=== PATIENT | male | born 1980 ===

== ENCOUNTER 2018-04-17 09:19 | Emergency (ER) | payer SELFPAY ==
[2018-04-17] MEDS ORDERED: NORCO PO ONE (09:44)
[2018-04-17] MEDS ORDERED: BICILLIN L-A IM ONE (09:44)
[2018-04-17] MEDS ORDERED: DECADRON IM ONE (09:44)
--- NOTE | 2018-04-17 10:00 | Emergency Department Report ---
ED ENT HPI - General Chief complaint: Sore Throat Stated complaint: SORE THROAT/CANT SWALLOW Time Seen by Provider: 04/17/18 09:41 Source: patient Mode of arrival: Ambulatory Limitations: No Limitations - History of Present Illness Initial comments: Patient is a 37-year-old [place] male who's had 2 days of sore throat. Patient has pain with swallowing. Patient states that when he swallows sometimes it causes him to cough. He's had subjective fevers chills at home but has not measured an elevated temperature. The patient denies nausea vomiting or diarrhea at this time. pain is 8/10 when swollowing . - Related Data Previous Rx's Medication Instructions Recorded Last Taken Type HYDROcodone/APAP 5-325 [[place] 1 each PO Q4HR PRN #12 tablet 04/17/18 Unknown Rx 5/325] predniSONE [Deltasone] 20 mg PO QDAY #5 tab 04/17/18 Unknown Rx Allergies Allergy/AdvReac Type Severity Reaction Status Date / Time No Known Allergies Allergy Unverified 08/03/15 09:20 ED Dental HPI - General Chief complaint: Sore Throat Stated complaint: SORE THROAT/CANT SWALLOW Time Seen by Provider: 04/17/18 09:41 Source: patient Mode of arrival: Ambulatory Limitations: No Limitations - Related Data Previous Rx's Medication Instructions Recorded Last Taken Type HYDROcodone/APAP 5-325 [[place] 1 each PO Q4HR PRN #12 tablet 04/17/18 Unknown Rx 5/325] predniSONE [Deltasone] 20 mg PO QDAY #5 tab 04/17/18 Unknown Rx Allergies Allergy/AdvReac Type Severity Reaction Status Date / Time No Known Allergies Allergy Unverified 08/03/15 09:20 ED Review of Systems ROS: Stated complaint: SORE THROAT/CANT SWALLOW Other details as noted in HPI Comment: All other systems reviewed and negative ED Past Medical Hx - Past Medical History Hx Headaches / Migraines: Yes Hx Asthma: Yes - Social History Smoking Status: Current Every Day Smoker Substance Use Type: None - Medications Home Medications: Home Medications Medication Instructions Recorded Confirmed Last Taken Type HYDROcodone/APAP 5-325 [[place] 1 each PO Q4HR PRN #12 tablet 04/17/18 Unknown Rx 5/325] predniSONE [Deltasone] 20 mg PO QDAY #5 tab 04/17/18 Unknown Rx ED Physical Exam - General Limitations: No Limitations General appearance: alert, in no apparent distress - Head Head exam: Present: atraumatic, normocephalic - Eye Eye exam: Present: normal appearance - ENT ENT exam: Present: mucous membranes moist. Absent: normal orophraynx (pharyngeal erythema with midline uvula) - Neck Neck exam: Present: normal inspection, lymphadenopathy (anterior cervical ) - Respiratory Respiratory exam: Present: normal lung sounds bilaterally. Absent: respiratory distress, wheezes, rales, rhonchi - Cardiovascular Cardiovascular Exam: Present: regular rate, normal rhythm. Absent: systolic murmur, diastolic murmur, rubs, gallop - GI/Abdominal GI/Abdominal exam: Present: soft, normal bowel sounds. Absent: distended, tenderness, guarding, rebound - Rectal Rectal exam: Present: deferred - Extremities Exam Extremities exam: Present: normal inspection - Back Exam Back exam: Present: normal inspection - Neurological Exam Neurological exam: Present: alert, oriented X3 - Psychiatric Psychiatric exam: Present: normal affect, normal mood - Skin Skin exam: Present: warm, dry, intact, normal color. Absent: rash ED Medical Decision Making - Medical Decision Making Patient to be empirically treated for strep pharyngitis be discharged home. Critical care attestation.: If time is entered above; I have spent that time in minutes in the direct care of this critically ill patient, excluding procedure time. ED Disposition Clinical Impression: Pharyngitis Qualifiers: Pharyngitis/tonsillitis etiology: unspecified etiology Qualified Code(s): J02.9 - Acute pharyngitis, unspecified Disposition: TO HOME OR SELFCARE Is pt being admited?: No Does the pt Need Aspirin: No Condition: Stable Instructions: Pharyngitis (ED) Time of Disposition: 10:02
== END 2018-04-17 10:47 | disposition home or self-care (01) ==
LOC: ED 09:19
DX: J02.9 Acute pharyngitis, unspecified (principal); J45.909 Unspecified asthma, uncomplicated; G43.909 Migraine, unspecified, not intractable, without status migrainosus; F17.200 Nicotine dependence, unspecified, uncomplicated
CPT/HCPCS: 96372; 99282; J0561; J1100

== ENCOUNTER 2019-01-08 20:00 | Emergency (ER) | payer SELFPAY ==
[2019-01-08 20:14] VITALS: BP 135/89
--- NOTE | 2019-01-08 20:21 | Emergency Department Report ---
Blank Doc - Documentation Documentation: 38-year-old male that presents with lac to finger. Exam: deep lac with possible bone involvement This initial assessment/diagnostic orders/clinical plan/treatment(s) is/are subject to change based on patient's health status, clinical progression and re- assessment by fellow clinical providers in the ED. Further treatment and workup at subsequent clinical providers discretion. Patient/guardians urged not to elope from the ED as their condition may be serious if not clinically assessed and managed. Initial orders include: 1- Patient sent to [facility] for further evaluation and treatment 2- xrays
--- NOTE | 2019-01-08 20:48 | XRay Report ---
XR finger(s) 2+V RT INDICATION / CLINICAL INFORMATION: Right ring finger laceration. COMPARISON: None available. FINDINGS: BONES/JOINT(S): No acute fracture or subluxation. No significant degenerative changes. SOFT TISSUES: No significant abnormality. No radiopaque foreign bodies or soft tissue gas. ADDITIONAL FINDINGS: None. Signer Name: Alan Corona MD Signed: 01/08/2019 8:44 PM Workstation Name: [id number]
[2019-01-08] MEDS ORDERED: LIDOCAINE-MPF (1%) 10 MG/1 ML VIAL 5 ML INFILTRATI ONE (22:21)
[2019-01-08] MEDS ORDERED: ONDANSETRON 4 MG ODT TAB PO ONE (22:21)
[2019-01-08] MEDS ORDERED: IBUPROFEN 600 MG TAB PO ONE (22:21)
[2019-01-08] MEDS ORDERED: HYDROcodone/ACETAMINOPHEN 7.5-325MG TAB PO ONE (22:21)
[2019-01-08] MEDS ORDERED: NEOMY 3.5 MG/BACIT 400 UNITS/POLY B 5000 UNITS/GM OINT PACKET TP ONE (22:21)
--- NOTE | 2019-01-09 00:48 | Emergency Department Report ---
Upper Extremity - HPI Chief Complaint: Wound/Laceration Stated Complaint: RT HAND FINGER LAC Time Seen by Provider: 01/08/19 20:19 Upper Extremity: Right Ring Finger (right ring finger laceration) Occurred When: Today (1 hour ago) Mechanism: Hit with Object, Crush (toilet cover hit the right ring finger) Symptoms: Yes Pain with Movement, Yes Laceration or Abrasion (right ring finger laceration), No Deformity, No Limited Range of Movement, No Numbness, No Weakness, No Swelling, No Bruising/Ecchymosis Other History: Patient is a 38-year-old -[place] male with no past medical history who presents to the ED with complaint of acute onset persistent painful bleeding laceration of right ring finger after a toilet porcelain cover sala[place] on his right ring finger about one hour ago. Patient states that the bleeding is not well controlled. Patient states that he is up-to-date with his tetanus vaccination. Patient denies numbness or tingling or weakness of the right hand. ED Review of Systems ROS: Stated complaint: RT HAND FINGER LAC Other details as noted in HPI Constitutional: denies: chills, fever Eyes: denies: eye pain, eye discharge, vision change ENT: denies: ear pain, throat pain Respiratory: denies: cough, shortness of breath, wheezing Cardiovascular: denies: chest pain, palpitations Endocrine: no symptoms reported Gastrointestinal: denies: abdominal pain, nausea, diarrhea Genitourinary: denies: urgency, dysuria Musculoskeletal: arthralgia (right ring finger pain due to bleeding laceration). denies: back pain, joint swelling Skin: other (bleeding laceration of right ring finger with pain). denies: rash, lesions Neurological: denies: headache, weakness, paresthesias Psychiatric: denies: anxiety, depression Hematological/Lymphatic: denies: easy bleeding, easy bruising ED Past Medical Hx - Past Medical History Hx Headaches / Migraines: Yes Hx Asthma: Yes - Social History Smoking Status: Current Every Day Smoker Substance Use Type: Alcohol - Medications Home Medications: Home Medications Medication Instructions Recorded Confirmed Last Taken Type HYDROcodone/APAP 5-325 [[place] 1 each PO Q4HR PRN #12 tablet 04/17/18 Unknown Rx 5/325] predniSONE [Deltasone] 20 mg PO QDAY #5 tab 04/17/18 Unknown Rx Acetaminophen/Codeine [Tylenol 1 tab PO Q6H PRN #12 tab 01/09/19 Unknown Rx /Codeine # 3 tab] Ibuprofen [Motrin] 800 mg PO Q8HR PRN #30 tablet 01/09/19 Unknown Rx Sulfamethoxazole/Trimethoprim 1 each PO Q12H #20 tablet 01/09/19 Unknown Rx [Bactrim DS TAB] Upper Extremity Exam - Exam General: Vital signs noted. No distress. Alert and acting appropriately. Head and Torso: No HEENT Abnormality, No Neck Tenderness, No Chest/Lungs Abnormality, No Abdominal Tenderness, No Back Tenderness Shoulder Exam: Yes Normal Range of Motion in Shoulder, No Shoulder Tenderness, No Clavicle Tenderness, No Shoulder Deformity, No AC Joint Tenderness Arm Exam: No Arm/Humerus Tenderness, No Arm Deformity Elbow: Yes Normal Range of Motion in Elbow, No Elbow Tenderness, No Elbow Deformity Forearm: No Forearm Tenderness, No Forearm Deformity, No Pain with Pronation, No Pain with Supination Wrist: Yes Normal ROM in Wrist, No Wrist Tenderness, No Wrist Deformity, No Snuffbox Tenderness, No Pain with Axial Thumb Compression Hand: Yes Hand Tenderness (right ring finger tenderness due to bleeding 9 cm laceration), Yes Digit Tenderness (right ring finger tenderness due to bleeding 9 cm laceration), Yes Normal ROM in Digit(s), No Hand Deformity, No Digit(s) Deformity, No Tendon Dysfunction CMS Exam: Yes Broken Skin (right ring finger bleeding 9 cm laceration), Yes Normal Distal Pulses, Yes Normal Capillary Refill, Yes Normal Distal Sensation Hand L/R Front: 1 - Bleeding 9 cm laceration with tenderness on the right ring finger on palmar side Hand L/R Back: 1 - Bleeding 9 cm laceration on right ring finger on palmar side ED Course Vital Signs 01/08/19 20:12 Temperature 98.6 F Pulse Rate 64 Respiratory 18 Rate Blood Pressure 135/89 [Right] O2 Sat by Pulse 100 Oximetry - Laceration /Wound Repair Right Finger Wound Location: upper extremity (right ring finger on palmar side) Wound Length (cm): 9 Wound's Depth, Shape: superficial, irregular Wound Explored: contaminated Irrigated w/ Saline (ccs): 100 Betadine Prep?: Yes Anesthesia: 1% Lidocaine Volume Anesthetic (ccs): 8 Wound Debrided: extensive Wound Repaired With: sutures Suture Size/Type: 3:0, proline Number of Sutures: 23 Layer Closure?: No Sterile Dressing Applied?: Yes Progress: Patient tolerated the procedure well. Patient will discharged home after the wound was cleaned and dressed appropriately. Patient was advised to follow-up with his primary care physician in 7-10 days for reevaluation. Patient was also advised to return to the ED immediately if symptoms get worse. Patient also advised to return to the ED or to his primary care physician in 12-14 days for suture removal. ED Medical Decision Making - Radiology Data Radiology results: report reviewed, image reviewed Right hand x-ray shows no acute fractures or subluxations or compressions of any foreign bodies in the tissues. - Medical Decision Making This is a 38-year-old male who presented to the ED with painful bleeding right ring finger laceration for 1 hour. In the ED, patient is alert and oriented 3 and is not in distress but appears to be in significant pain. Patient was treated for pain. Patient is up-to-date with his tetanus vaccinations. Right hand x-ray shows no acute fractures or subluxations or foreign bodies in the tissues of the right hand. The right ring finger laceration was cleaned thoroughly and sutured per protocol. Patient tolerated the procedure well and after the procedure the wound was dressed appropriately and patient discharged home on pain medication and prophylactic antibiotics. Patient was advised to return to the ED immediately if symptoms get worse. Patient was otherwise advised to follow-up with his primary care physician in 7-10 days for reevaluati on. Patient was also advised to return to the ED or to his primary care physician in 12-14 days for suture removal. - Differential Diagnosis hand contusion; finger fracture; lacerations Critical care attestation.: If time is entered above; I have spent that time in minutes in the direct care of this critically ill patient, excluding procedure time. ED Disposition Clinical Impression: Contusion of right hand including fingers Qualifiers: Encounter type: initial encounter Qualified Code(s): S60.221A - Contusion of right hand, initial encounter; S60.00XA - Contusion of unspecified finger without damage to nail, initial encounter Laceration of right ring finger w/o foreign body w/o damage to nail Qualifiers: Encounter type: initial encounter Qualified Code(s): S61.214A - Laceration without foreign body of right ring finger without damage to nail, initial encounter Disposition: TO HOME OR SELFCARE Is pt being admited?: No Does the pt Need Aspirin: No Condition: Stable Instructions: Finger Laceration (ED), Suture Care (ED) Additional Instructions: Take medications with food, drink plenty of fluids and follow-up with your primary care physician in 7-10 days for reevaluation. Return to the ED immediately if symptoms get worse. Otherwise return to the ED or to primary care physician in 12-14 days for suture removal. Prescriptions: Sulfamethoxazole/Trimethoprim [Bactrim DS TAB] 1 each PO Q12H #20 tablet Ibuprofen [Motrin] 800 mg PO Q8HR PRN #30 tablet PRN Reason: Pain , Severe (7-10) Acetaminophen/Codeine [Tylenol /Codeine # 3 tab] 1 tab PO Q6H PRN #12 tab PRN Reason: Pain , Severe (7-10) Referrals: [facility] [Outside] - 7-10 days Forms: Work/School Release Form(ED) Time of Disposition: 00:56 Print Language: MONGOLIAN
== END 2019-01-09 01:13 | disposition home or self-care (01) ==
LOC: ED 20:00
DX: S61.214A Laceration without foreign body of right ring finger without damage to nail, initial encounter (principal); S60.221A Contusion of right hand, initial encounter; S60.00XA Contusion of unspecified finger without damage to nail, initial encounter; J45.909 Unspecified asthma, uncomplicated; F17.200 Nicotine dependence, unspecified, uncomplicated; Z79.899 Other long term (current) drug therapy; X58.XXXA Exposure to other specified factors, initial encounter; Y93.89 Activity, other specified; Y92.89 Other specified places as the place of occurrence of the external cause; Y99.8 Other external cause status
CPT/HCPCS: A6250; Q0162

== ENCOUNTER 2019-02-01 18:49 | Emergency (ER) | payer SELFPAY ==
--- NOTE | 2019-02-01 19:27 | Emergency Department Report ---
ED General Adult HPI - General Chief complaint: Laceration/Recheck/Suture Stated complaint: RT RING FINGER STITCHS REMOVED Time Seen by Provider: 02/01/19 19:27 Source: patient Mode of arrival: Ambulatory Limitations: No Limitations - History of Present Illness Initial comments: 38 yo AA M pt presents for suture removal x today. Pt had laceration repaired here in ED 01/08/19. He states compliance with oral and topical antibiotics. He denies any increased pain, drainage, redness, swelling, and fever. - Related Data Previous Rx's Medication Instructions Recorded Last Taken Type HYDROcodone/APAP 5-325 [[place] 1 each PO Q4HR PRN #12 tablet 04/17/18 Unknown Rx 5/325] predniSONE [Deltasone] 20 mg PO QDAY #5 tab 04/17/18 Unknown Rx Acetaminophen/Codeine [Tylenol 1 tab PO Q6H PRN #12 tab 01/09/19 Unknown Rx /Codeine # 3 tab] Ibuprofen [Motrin] 800 mg PO Q8HR PRN #30 tablet 01/09/19 Unknown Rx Sulfamethoxazole/Trimethoprim 1 each PO Q12H #20 tablet 01/09/19 Unknown Rx [Bactrim DS TAB] Ibuprofen [Motrin 800 MG tab] 800 mg PO Q8HR PRN #21 tablet 02/01/19 Unknown Rx Allergies Allergy/AdvReac Type Severity Reaction Status Date / Time No Known Allergies Allergy Unverified 08/03/15 09:20 ED Review of Systems ROS: Stated complaint: RT RING FINGER STITCHS REMOVED Other details as noted in HPI Comment: All other systems reviewed and negative Skin: as per HPI ED Past Medical Hx - Past Medical History Hx Headaches / Migraines: Yes Hx Asthma: Yes - Surgical History Past Surgical History?: No - Social History Smoking Status: Current Every Day Smoker Substance Use Type: Alcohol - Medications Home Medications: Home Medications Medication Instructions Recorded Confirmed Last Taken Type HYDROcodone/APAP 5-325 [[place] 1 each PO Q4HR PRN #12 tablet 04/17/18 Unknown Rx 5/325] predniSONE [Deltasone] 20 mg PO QDAY #5 tab 04/17/18 Unknown Rx Acetaminophen/Codeine [Tylenol 1 tab PO Q6H PRN #12 tab 01/09/19 Unknown Rx /Codeine # 3 tab] Ibuprofen [Motrin] 800 mg PO Q8HR PRN #30 tablet 01/09/19 Unknown Rx Sulfamethoxazole/Trimethoprim 1 each PO Q12H #20 tablet 01/09/19 Unknown Rx [Bactrim DS TAB] Ibuprofen [Motrin 800 MG tab] 800 mg PO Q8HR PRN #21 tablet 02/01/19 Unknown Rx ED Physical Exam - General Limitations: No Limitations General appearance: alert, in no apparent distress - Head Head exam: Present: atraumatic, normocephalic - Respiratory Respiratory exam: Absent: respiratory distress - Cardiovascular Cardiovascular Exam: Present: regular rate - Extremities Exam Extremities exam: Present: other (healing laceration of right ring finger noted with sutures intact. No erythema or drainage noted. Minimal swelling noted.) - Neurological Exam Neurological exam: Present: alert, oriented X3 - Psychiatric Psychiatric exam: Present: normal affect, normal mood - Skin Skin exam: Present: warm, dry, intact, normal color. Absent: rash - Procedure Description Procedures done: suture removal. 23 simple interrupted sutures removed without complication. No wound dehiscence, purulent drainage, bleeding, or erythema/swelling noted ED Medical Decision Making - Radiology Data Pt here for suture removal. No signs of infection noted on exam. Sutures removed without complication. PCP f/u recommended as needed. Strict return precautions for wound were discussed in detail with pt who states understanding. Critical care attestation.: If time is entered above; I have spent that time in minutes in the direct care of this critically ill patient, excluding procedure time. ED Disposition Clinical Impression: Visit for suture removal Disposition: DC-01 TO HOME OR SELFCARE Is pt being admited?: No Condition: Stable Instructions: Suture Removal (ED) Prescriptions: Ibuprofen [Motrin 800 MG tab] 800 mg PO Q8HR PRN #21 tablet PRN Reason: pain Referrals: PRIMARY CARE, [Referring] - 3-5 Days
[2019-02-01 19:47] VITALS: BP 141/88
== END 2019-02-01 20:08 | disposition home or self-care (01) ==
LOC: ED 18:49
DX: S61.214D Laceration without foreign body of right ring finger without damage to nail, subsequent encounter (principal); G43.909 Migraine, unspecified, not intractable, without status migrainosus; J45.909 Unspecified asthma, uncomplicated; F17.200 Nicotine dependence, unspecified, uncomplicated; F10.10 Alcohol abuse, uncomplicated; Z79.899 Other long term (current) drug therapy; X58.XXXD Exposure to other specified factors, subsequent encounter

== ENCOUNTER 2020-02-05 11:59 | Emergency (ER) | payer SELFPAY ==
[2020-02-05] MEDS ORDERED: LIDOCAINE (1%) 10 MG/1 ML VIAL 20 ML MDV INFILTRATI ONE ×2 (12:05→14:55)
[2020-02-05] MEDS ORDERED: SODIUM CHLORIDE 0.9% IRR 500 ML BOTTLE IR NR (12:05)
[2020-02-05] MEDS ORDERED: NEOMY 3.5 MG/BACIT 400 UNITS/POLY B 5000 UNITS/GM OINT PACKET TP ONE (12:05)
[2020-02-05] MEDS ORDERED: IBUPROFEN 600 MG TAB PO ONE ×2 (12:05→14:55)
--- NOTE | 2020-02-05 12:05 | Event Note ---
ED Screening Note ED Screening Note: lac to hand tdap utd nv intact full rom This initial assessment/diagnostic orders/clinical plan/treatment(s) is/are subject to change based on patients health status, clinical progression and re- assessment by fellow clinical providers in the ED. Further treatment and workup at subsequent clinical providers discretion. Patient/guardian urged not to elope from the ED as their condition may be serious if not clinically assessed and managed. Initial orders include: lac repair
[2020-02-05 12:07] VITALS: BP 133/93
--- NOTE | 2020-02-05 14:27 | Emergency Department Report ---
ED Laceration HPI - HPI Chief Complaint: Wound/Laceration Stated Complaint: LT HAND INJURY Time Seen by Provider: 02/05/20 12:05 Occurred When: Today Location: Upper Extremity (L hand) Severity: moderate Tetanus Status: Up to Date Laceration Symptoms: Yes Pain, No Foreign Body Sensation, No Numbness, No Weakness Other History: L hand [employer] with saw. no numbness. tetanus utd ED Review of Systems ROS: Stated complaint: LT HAND INJURY Other details as noted in HPI Comment: All other systems reviewed and negative ED Past Medical Hx - Past Medical History Hx Headaches / Migraines: Yes Hx Asthma: Yes - Surgical History Past Surgical History?: No - Social History Smoking Status: Current Every Day Smoker Substance Use Type: Alcohol, Marijuana - Medications Home Medications: Home Medications Medication Instructions Recorded Confirmed Last Taken Type HYDROcodone/APAP 5-325 [[place] 1 each PO Q4HR PRN #12 tablet 04/17/18 Unknown Rx 5/325] predniSONE [Deltasone] 20 mg PO QDAY #5 tab 04/17/18 Unknown Rx Acetaminophen/Codeine [Tylenol 1 tab PO Q6H PRN #12 tab 01/09/19 Unknown Rx /Codeine # 3 tab] Ibuprofen [Motrin] 800 mg PO Q8HR PRN #30 tablet 01/09/19 Unknown Rx Sulfamethoxazole/Trimethoprim 1 each PO Q12H #20 tablet 01/09/19 Unknown Rx [Bactrim DS TAB] Ibuprofen [Motrin 800 MG tab] 800 mg PO Q8HR PRN #21 tablet 02/01/19 Unknown Rx cephALEXin [Keflex] 500 mg PO Q8HR #15 cap 02/05/20 Unknown Rx Laceration Physical Exam - Exam General: Vital signs noted. No distress. Alert and acting appropriately. Laceration Location: Upper Extremity (L hand, dorsal, near 2nd MCP 3 cm) Laceration Exam: Yes Normal Distal CMS, No Foreign Body, No Exposed Tendon, Vessel, or Nerve, No Tendon Injury ED Course Vital Signs 02/05/20 02/05/20 12:06 12:07 Temperature 97.9 F Pulse Rate 61 Respiratory 18 Rate Blood Pressure 133/93 O2 Sat by Pulse 96 Oximetry - Laceration /Wound Repair L hand Wound Location: upper extremity (dorsal L hand) Wound Length (cm): 3 Wound's Depth, Shape: superficial, irregular Irrigated w/ Saline (ccs): 100 Betadine Prep?: Yes Anesthesia: 1% Lidocaine Volume Anesthetic (ccs): 3 Wound Debrided: minimal Wound Repaired With: sutures Suture Size/Type: 5:0, proline Number of Sutures: 5 Layer Closure?: No Sterile Dressing Applied?: Yes ED Medical Decision Making - Medical Decision Making minor lac no complication plan for repair, abx, fu pcp - Differential Diagnosis lac, doubt bony injury Critical care attestation.: If time is entered above; I have spent that time in minutes in the direct care of this critically ill patient, excluding procedure time. ED Disposition Clinical Impression: Hand laceration Qualifiers: Encounter type: initial encounter Foreign body presence: without foreign body Laterality: left Qualified Code(s): S61.412A - Laceration without foreign body of left hand, initial encounter Disposition: DC- TO HOME OR SELFCARE Is pt being admited?: No Condition: Good Instructions: Sutures, Shireen, or Adhesive Wound Closure, Wound Care, Adult Prescriptions: cephALEXin [Keflex] 500 mg PO Q8HR #15 cap Referrals: PRIMARY CARE, [Primary Care Provider] - 3-5 Days Time of Disposition: 15:17
== END 2020-02-05 16:01 | disposition home or self-care (01) ==
LOC: ED 11:59
DX: S61.412A Laceration without foreign body of left hand, initial encounter (principal); G43.909 Migraine, unspecified, not intractable, without status migrainosus; J45.909 Unspecified asthma, uncomplicated; F17.200 Nicotine dependence, unspecified, uncomplicated; F12.10 Cannabis abuse, uncomplicated; Z79.899 Other long term (current) drug therapy; X58.XXXA Exposure to other specified factors, initial encounter; Y93.89 Activity, other specified; Y92.89 Other specified places as the place of occurrence of the external cause; Y99.8 Other external cause status
CPT/HCPCS: 12001; 99282; A6250